=== PATIENT | female | born 1985 | race Caucasian/White ===

== ENCOUNTER 2018-01-21 02:56 | Emergency (ER) | payer OTHER ==
[~2018-01-21] VITALS: Ht 157.5 cm; Wt 108.0 kg
[2018-01-21 04:30] VITALS: BP 121/70
== END 2018-01-21 04:30 | disposition home or self-care (01) ==
LOC: ED 02:56
DX: O99.713 Diseases of the skin and subcutaneous tissue complicating pregnancy, third trimester (principal); L02.32 Furuncle of buttock; O24.313 Unspecified pre-existing diabetes mellitus in pregnancy, third trimester; O99.513 Diseases of the respiratory system complicating pregnancy, third trimester; J45.909 Unspecified asthma, uncomplicated; E11.9 Type 2 diabetes mellitus without complications; Z3A.32 32 weeks gestation of pregnancy
CPT/HCPCS: J0690